=== PATIENT | male | born 1965 | race Caucasian/White ===

== ENCOUNTER 2017-06-14 12:57 | Emergency (ER) | payer OTHER ==
[2017-06-14 13:02] VITALS: TEMP 98.6
[2017-06-14] MEDS ORDERED: fentaNYL 100 MCG/2 ML INJ ONE (13:11)
[2017-06-14] MEDS ORDERED: ONDANSETRON 4 MG/2 ML VIAL ONE (13:11)
[2017-06-14] MEDS ORDERED: ONDANSETRON 4 MG/2 ML VIAL IVP ONE (13:18)
[2017-06-14] MEDS ORDERED: fentaNYL 100 MCG/2 ML INJ IVP ONE (13:18)
--- NOTE | 2017-06-14 13:42 | EDPHY ---
H & P Time Seen by Provider: 06/14/17 13:31 HPI/ROS: CHIEF COMPLAINT: Right shoulder injury HISTORY OF PRESENT ILLNESS: Fell off a skateboard just prior to arrival, landing on his right extended arm, presents with severe right shoulder pain. Started just after the fall. Does not radiate. Not associated with weakness or numbness in the hand. Much worse with movement or palpation. REVIEW OF SYSTEMS: Eye: no change in vision ENT: No symptoms Cardiac: no chest pain or syncope Pulmonary: Not short of breath Abdomen: No abdominal pain Musculoskeletal: no back pain or neck pain, a little bit of right wrist pain. Skin: No laceration Neuro: no headache or head injury or loss of consciousness Constitutional: no fever or recent illness : no urinary symptoms A comprehensive 10 point review of systems is otherwise negative aside from elements mentioned in the history of present illness. PAST MEDICAL HISTORY: Negative except for orthopedic surgery including ankle and knee Social history: General Appearance: Alert and conversant, cooperative. Eyes: No scleral icterus. ENT, Mouth: Normal mucous membranes. Respiratory: Normal respiratory effort, breath sounds equal, lungs are clear to auscultation. Cardiovascular: Regular rate and rhythm. Normal right radial pulse. Gastrointestinal: Abdomen is soft and non tender. Neurological: Alert and oriented x3. Normally conversant. Face symmetric, normal sensation in all extremities. The the normal movement of the fingers of the right hand. Skin: Warm and dry, no rashes. Musculoskeletal: Right AC step-off. No spinal or other extremity tenderness. No spinal tenderness or other extremity tenderness. Psychiatric: Not agitated. Emergency Department course/MDM: 1335: X-ray reviewed shows dislocation anterior without fracture. Scapular manipulation attempted without success. Please see procedure note for reduction. Last water an hour and half ago. Last food 8:30 p.m. last night. 1441: Reexamined, comfortable. Wrist re-examined at this time and has no bony tenderness whatsoever, including in the snuffbox. Smoking Status: Never smoked Constitutional: Initial Vital Signs Temperature (C) 37 C 06/14/17 13:00 Heart Rate 60 06/14/17 13:00 Respiratory Rate 22 H 06/14/17 13:00 Blood Pressure 177/118 H 06/14/17 13:00 O2 Sat (%) 98 06/14/17 13:00 O2 Delivery Mode [Post Room Air Procedure 1st] O2 Delivery Mode [Procedural Non-Rebreather Mask 2nd] O2 Delivery Mode [Procedural Non-Rebreather Mask 1st] O2 Delivery Mode [.Immediate Non-Rebreather Mask Pre-Procedure] O2 Delivery Mode Room Air O2 (L/minute) [Procedural 2nd] 10 O2 (L/minute) [Procedural 1st] 10 O2 (L/minute) [.Immediate Pre- 10 Procedure] Allergies/Adverse Reactions: No Known Allergies Allergy (Unverified 06/14/17 13:00) Home Medications: Medication Instructions Recorded oxyCODONE/APAP 5/325 [Percocet] 1 - 2 tab PO Q4-6PRN PRN #11 tab 06/14/17 MDM/Departure - MDM Diagnostics: Initial right shoulder x-ray limited views show anterior dislocation without fracture Imaging Results: Imaging Impressions Shoulder X-Ray 06/14/17 13:17 Impression: Right humeral head anterior inferior dislocation. Procedures: Procedure: Procedural sedation. Indication: Dislocation reduction A pre-sedation evaluation was completed on the patient at 13 40 including medical history, allergies and medications, last oral intake, previous experience with sedation, airway assessment, physical examination. Patient is an appropriate candidate for procedural sedation. The risks, benefits, and alternatives of the sedation were discussed with the patient including but not limited to need for airway intervention, cardiovascular complications, ; and consent obtained. The patient is ASA class 1E.Mallampati and 3/3/2 airway assessments were completed. A time out was completed. The patient was sedated with propofol. The patient was monitored with continuous pulse oximetry , psychiatry instructor and end tidal CO2. There were no complications and no significant hypoxemia. I remained at the bedside for the sedation. The total time I spent in the procedural sedation was 10 minutes. At 1441 the patient is alert, awake, and back to neurological and respiratory baseline. Procedure: Dislocation reduction. Indication: Dislocation of the the right glenohumeral joint. Risks, benefits, alternatives discussed with the patient including but not limited to fracture, nerve or blood vessel injury, and consent obtained. A timeout was completed. The shoulder was reduced in the usual fashion without complications. Post reduction the patient's neurovascular exam is normal. Post reduction x-ray demonstrates reduction of the joint to the anatomic position. The procedure was performed by myself. Medications Given: Discontinued Medications Fentanyl (Sublimaze) 100 mcg IVP EDNOW ONE Stop: 06/14/17 13:19 Last Admin: 06/14/17 13:24 Dose: 100 mcg Ondansetron HCl (Zofran) 4 mg IVP EDNOW ONE Stop: 06/14/17 13:19 Last Admin: 06/14/17 13:24 Dose: 4 mg Propofol (Diprivan) 100 mg IVP EDNOW ONE Stop: 06/14/17 14:01 Last Admin: 06/14/17 14:00 Dose: 100 mg - Depart Disposition: Home, Routine, Self-Care Clinical Impression: Anterior shoulder dislocation Qualifiers: Encounter type: initial encounter Laterality: right Qualified Code(s): S43.014A - Anterior dislocation of right humerus, initial encounter Condition: Good Instructions: Shoulder Dislocation (ED) Prescriptions: oxyCODONE/APAP 5/325 [Percocet] 1 - 2 tab PO Q4-6PRN PRN #11 tab PRN Reason: Pain Referrals: Austin Peres MD [Medical Doctor] - As per Instructions (Follow-up with this orthopedist within the next 1 week for evaluation. Limited use of the right arm until then.)
[2017-06-14] MEDS ORDERED: PROPOFOL 200 MG/20 ML VIAL ONE (13:49)
[2017-06-14] MEDS ORDERED: PROPOFOL 200 MG/20 ML VIAL IVP ONE (14:00)
[2017-06-14 15:00] VITALS: BP 136/72; PULSE 70; RESP 17; O2SAT 95
== END 2017-06-14 14:58 | disposition home or self-care (01) ==
PROC: 0RSJXZZ Reposition Right Shoulder Joint, External Approach (ICD-10-PCS; principal; 2017-06-14)
DX: S43.014A Anterior dislocation of right humerus, initial encounter (principal); V00.131A Fall from skateboard, initial encounter; Y93.51 Activity, roller skating (inline) and skateboarding
CPT/HCPCS: 96374; A4565; J2405; J2704; J3010

== ENCOUNTER 2017-09-22 09:52 | Emergency (ER) | payer OTHER ==
[2017-09-22 10:00] VITALS: RESP 16
--- NOTE | 2017-09-22 10:06 | EDPHY ---
H & P Time Seen by Provider: 09/22/17 10:02 HPI/ROS: CHIEF COMPLAINT: Right knee pain HISTORY OF PRESENT ILLNESS: 51-year-old male arrives via private vehicle complaining of acute right knee pain after he was snowboarding yesterday, fell, hyperflexed his right knee and sustained a valgus stress to his right knee. He is able to bear weight albeit with some discomfort. Has been using a friend's knee brace and crutches. No other injury. No paresthesia. PHYSICAL EXAM (Prior to examination, patient consented to physical exam, hands were washed and my usual and customary physical exam procedures followed) 1) GENERAL: Well-developed, well-nourished, alert and oriented. Appears to be in no acute distress. 2) HEAD: Normocephalic 3) HEENT: Pupils equal, round, reactive to light bilaterally. 4) LUNGS: Breathing comfortably. 5) MUSCULOSKELETAL: Exam of the right knee shows mild soft tissue swelling, tender to palpation medial-inferior aspect of the right knee. No gross instability. Flexion to 90 degrees, extension to 170 degrees . Compartments are soft. 6) SKIN: Intact no discoloration no tenting 7) VASCULAR: DP,PT pulses and cap refill present and brisk distally DIFFERENTIAL DIAGNOSIS: in no particular order including but not limited to fracture, sprain, compartment syndrome, septic arthritis, DVT Patient has his own pre-hospital crutches and knee brace. MEDICAL DECISION MAKING Serial evaluations performed on patient. I discussed the limitations of x-ray in diagnosis of knee pain and injury. At this time I do not think that emergent MRI is currently indicated. However, I have recommended follow-up with Orthopedic surgery and provided this referral information. Informed the patient that outpatient MRI may be indicated. He would like to follow up with Dr. Sly Suazo and has been given this referral information. Smoking Status: Never smoked Constitutional: Initial Vital Signs Temperature (C) 36.9 C 09/22/17 09:57 Heart Rate 74 09/22/17 09:57 Respiratory Rate 16 09/22/17 09:57 Blood Pressure 130/84 H 09/22/17 09:57 O2 Sat (%) 96 09/22/17 09:57 O2 Delivery Mode Room Air Allergies/Adverse Reactions: No Known Allergies Allergy (Unverified 09/22/17 09:57) Home Medications: Medication Instructions Recorded Hydrocodone/APAP 5/325 [Drummonds 1 tab PO Q6 PRN #7 tab 09/22/17 5/325 (RX)] MDM/Departure - MDM Imaging Results: Imaging Impressions Knee X-Ray 09/22/17 10:05 Impression: 1. Nothing acute identified. 2. 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 Images reviewed myself - Depart Disposition: Home, Routine, Self-Care Clinical Impression: Right knee sprain Qualifiers: Encounter type: initial encounter Involved ligament of knee: unspecified ligament Qualified Code(s): S83.91XA - Sprain of unspecified site of right knee , initial encounter Condition: Good Instructions: Knee Sprain (ED) Additional Instructions: Return to the ER immediately if you experience discoloration, have worsening pain, numbness, tingling, or any other symptoms that concern you. If you received x-rays in the emergency department today, be advised, that ligamentous , tendon, muscular, and other non-bony injury cannot be fully ruled out. Try to keep your affected extremity elevated above the level of your chest, and keep cold packs on the affected area, for the next 48 hours. Prescriptions: Hydrocodone/APAP 5/325 [Drummonds 5/325 (RX)] 1 tab PO Q6 PRN #7 tab PRN Reason: Pain, Severe Referrals: Sly Suazo MD [Medical Doctor] - 5-7 days, call for appt.
[2017-09-22 11:20] VITALS: BP 131/81; PULSE 72; TEMP 97.5; O2SAT 93
== END 2017-09-22 11:20 | disposition home or self-care (01) ==
DX: S83.91XA Sprain of unspecified site of right knee, initial encounter (principal); V00.311A Fall from snowboard, initial encounter; Y99.8 Other external cause status; Y93.23 Activity, snow (alpine) (downhill) skiing, snowboarding, sledding, tobogganing and snow tubing

== ENCOUNTER 2018-03-01 19:40 | Emergency (ER) | payer OTHER ==
--- NOTE | 2018-03-01 19:50 | EDPHY ---
H & P Stated Complaint: SKATEBOARDING ACC/L SIDE ABRASIONS, LUZMA HAND JOINT PAIN Time Seen by Provider: 03/01/18 19:49 - Personal History Current Tetanus Diphtheria and Acellular Pertussis (TDAP): Yes - Medical/Surgical History Hx Asthma: No Hx Chronic Respiratory Disease: No Hx Diabetes: No Hx Cardiac Disease: No Hx Renal Disease: No Hx Cirrhosis: No Hx Alcoholism: No Hx HIV/AIDS: No Hx Splenectomy or Spleen Trauma: No Other PMH: L knee surgery, L thumb injury, R KNEE SX, DISLOCATED R SHOULDER - Social History Smoking Status: Never smoked Constitutional: Initial Vital Signs Temperature (C) 36.5 C 03/01/18 19:45 Heart Rate 86 03/01/18 19:45 Respiratory Rate 16 03/01/18 19:45 Blood Pressure 116/82 H 03/01/18 19:45 O2 Sat (%) 96 03/01/18 19:45 O2 Delivery Mode Room Air Allergies/Adverse Reactions: No Known Allergies Allergy (Verified 03/01/18 19:45) Home Medications: Medication Instructions Recorded NK [No Known Home Meds] 03/01/18 Medical Decision Making - Diagnostics Imaging Results: Imaging Impressions Hip X-Ray 03/01/18 20:02 Impression: No evidence for acute fracture. Degenerative change in both hips. Ankle X-Ray 03/01/18 20:03 Impression: No evidence for acute osseous abnormality in either ankle. Ankle X-Ray 03/01/18 20:03 Impression: No evidence for acute osseous abnormality in either ankle. ED Course/Re-evaluation: CHIEF COMPLAINT: Ankle, hand, and left sided pain and abrasions after skateboarding accident HISTORY OF PRESENT ILLNESS: The patient is a 52 y/o male complaining of bilateral ankles and hand pain, and left-sided abrasions after a skateboarding accident. He was hiking at [place] today and on the drive down the road, he decided to skateboard down the hill. His skateboard has regenerative breaks that failed as he approached an intersection. He tried to slow the skateboard but was going to fast. Ultimately he jumped and rolled off the skateboard. He has abrasions to the left upper arm, left flank, left hip, left thigh, and left calf. He also reports pain in both ankles and both hands, particularly his distal finger tips. He also hit his head but denies loss of consciousness, or amnesia. He denies any other injuries. REVIEW OF SYSTEMS: A 10 point review of systems was performed and is negative with the exception of the elements mentioned in the history of present illness. PHYSICAL EXAM: HR, BP, O2 Sat, RR. Temp noted General Appearance: Alert, well hydrated, appropriate, and non-toxic appearing. Laughing but clearly uncomfortable. Head: Atraumatic without scalp tenderness or obvious injury Eyes: Pupils equal, round, reactive to light and accommodation, EOMI, no trauma , no injection. Nose: Atraumatic, no rhinorrhea, clear. Throat: There is no erythema or exudates, no lesions, normal tonsils, mucus membranes moist. Neck: Supple, nontender, no lymphadenopathy. Respiratory: No retractions, no distress, no wheezes, and no accessory muscle use. Lungs are clear to auscultation bilaterally. Cardiovascular: Regular rate and rhythm, no murmurs, rubs, or gallops. Gastrointestinal: Abdomen is soft, nontender, non-distended, no masses, no rebound, no guarding, no peritoneal signs. Musculoskeletal: Pain with flexion of the fingers, particularly the distal joint. Pain and instability with walking in the ankles. Uneven, limping gait. Neurological: Alert, appropriate, and interactive. Skin: Abrasions to the lateral aspect of his left thigh, left calf, left flank , left hip, and left arm. No rashes, good turgor, no nodules on palpation. Past medical history: Dislocated shoulder Past surgical history: Orthopedic surgery on both knees, left thumb surgery Family history: Non-contributory Social history: Lives in [place], , self-employed DIAGNOSTICS/PROCEDURES/CRITICAL CARE TIME: Study: Bilateral ankle X-ray Indication: Trauma Results: After viewing the images myself on the PACS system. My interpretation of the images is: no acute process. The radiologist interpretation is pending at the time of this dictation. Study: Bilateral hand Indication: Trauma Results: After viewing the images myself on the PACS system. My interpretation of the images is: no acute process. The radiologist interpretation is pending at the time of this dictation. Study: Left hip Indication: Trauma Results: After viewing the images myself on the PACS system. My interpretation of the images is: no acute process. The radiologist interpretation is pending at the time of this dictation. Study: Pelvis Indication: Trauma Results: After viewing the images myself on the PACS system. My interpretation of the images is: no acute process. The radiologist interpretation is pending at the time of this dictation. DIFFERENTIAL DIAGNOSIS: The differential diagnosis for this patient's condition included but was not limited to fracture, sprain, strain, and dislocation. MEDICAL DECISION MAKING: The patient presents post skateboarding accident for bilateral hand pain, bilateral ankle pain, and numerous abrasions. He has pain with flexion of distal finger joints. He has pain and instability in ankles with ambulating. Further, he has a limping gait. Plan for cleaning of abrasions and x-ray of both hands, both ankles, left hip, and pelvis. 9:30 PM - The x-rays are negative for acute findings. Abrasions have been cleaned and dressed. He will be released with instructions to follow up. He agrees to this course of action. - Data Points Medications Given: Discontinued Medications Hydromorphone HCl (Dilaudid) 1 mg IVP EDNOW ONE Stop: 03/01/18 20:01 Last Admin: 03/01/18 20:18 Dose: 1 mg Tetracaine/Epinephrine/Lidocaine (Let Gel Topical) 3 ea TP EDNOW ONE Stop: 03/01/18 20:26 Last Admin: 03/01/18 20:30 Dose: 3 ea Departure - Departure Disposition: Home, Routine, Self-Care Clinical Impression: Abrasion Hand sprain Qualifiers: Encounter type: initial encounter Laterality: unspecified laterality Qualified Code(s): S63.90XA - Sprain of unspecified part of unspecified wrist and hand, initial encounter Ankle sprain Qualifiers: Encounter type: initial encounter Involved ligament of ankle: unspecified ligament Laterality: unspecified laterality Qualified Code(s): S93.409A - Sprain of unspecified ligament of unspecified ankle, initial encounter Condition: Good Instructions: Ankle Sprain (ED), Sprain (ED), Hand Sprain (ED), Abrasion (ED), Musculoskeletal Pain (ED) Additional Instructions: 1. Relax and ice as needed. 2. Keep the abrasions clean and look for signs of infection. 3. Follow up with your primary care provider for your visit. 4. Return to the emergency department for inability to walk, or other worsening of condition. Referrals: Marcial Bruce MD [Primary Care Provider] - As per Instructions Stephanie Goss MD [Medical Doctor] - As per Instructions Report Scribed for: Robles Carlton Report Scribed by: Aisha Covarrubias Date of Report: 03/01/18 Time of Report: 20:39
[2018-03-01] MEDS ORDERED: HYDROmorphONE/DILAUDID 2 MG/ML INJ IVP ONE (20:00)
[2018-03-01] MEDS ORDERED: LET GEL TOPICAL 1 EA SYR TP ONE ×3 (20:18→20:25)
[2018-03-01] MEDS ORDERED: OXYCODONE/APAP 5/325MG PREPACK#4 BTL TAKEHOME ONE (22:09)
[2018-03-01 22:22] VITALS: BP 112/63
== END 2018-03-01 22:30 | disposition home or self-care (01) ==
DX: S93.401A Sprain of unspecified ligament of right ankle, initial encounter (principal); S93.402A Sprain of unspecified ligament of left ankle, initial encounter; S63.91XA Sprain of unspecified part of right wrist and hand, initial encounter; S63.92XA Sprain of unspecified part of left wrist and hand, initial encounter; S70.312A Abrasion, left thigh, initial encounter; S80.812A Abrasion, left lower leg, initial encounter; S30.811A Abrasion of abdominal wall, initial encounter; S70.212A Abrasion, left hip, initial encounter; S40.812A Abrasion of left upper arm, initial encounter; V00.138A Other skateboard accident, initial encounter; Y99.8 Other external cause status; Y93.51 Activity, roller skating (inline) and skateboarding
CPT/HCPCS: 96374; J1170